=== PATIENT | female | born 1980 | race Caucasian/White ===

== ENCOUNTER 2016-05-22 15:45 | Emergency (ER) | payer MEDICAID ==
[2014-12-08 05:50] VITALS: BMI 20.5
[~2016-05-22 15:45] MED LIST: CLARITIN 10 MG10 MG PO; DILAUDID2 MG PO; IBUPROFEN600 MG PO; OXYBUTYNIN CHLOR5 MG PO; PHENERGAN25 M1 PO; SINGULAIR10 MG PO; TIKOSYN500 MCG PO; XANAX0.5 MG PO
== END 2016-05-22 19:50 | disposition home or self-care (01) ==
LOC: D.ER 15:45
DX: S43.402A Unspecified sprain of left shoulder joint, initial encounter (principal); Y04.2XXA Assault by strike against or bumped into by another person, initial encounter; Y93.89 Activity, other specified; Y92.019 Unspecified place in single-family (private) house as the place of occurrence of the external cause

== ENCOUNTER 2017-08-08 14:01 | Emergency (ER) | payer MEDICAID ==
[2014-12-08 05:50] VITALS: BMI 20.5
== END 2017-08-08 17:35 | disposition home or self-care (01) ==
LOC: D.ER 14:01
DX: S00.03XA Contusion of scalp, initial encounter (principal); Y04.2XXA Assault by strike against or bumped into by another person, initial encounter; Y93.89 Activity, other specified; Y92.019 Unspecified place in single-family (private) house as the place of occurrence of the external cause; S16.1XXA Strain of muscle, fascia and tendon at neck level, initial encounter; S01.01XA Laceration without foreign body of scalp, initial encounter

== ENCOUNTER → 2017-12-16 12:38 | Outpatient (CLI) | payer MEDICAID ==
[2014-12-08 05:50] VITALS: BMI 20.5
== END | disposition home or self-care (01) ==
LOC: D.NM 12:38
DX: R19.7 Diarrhea, unspecified (principal)

== ENCOUNTER 2018-02-28 13:41 | Emergency (ER) | payer MEDICAID ==
[~2018-02-28] VITALS: Ht 170.2 cm; Wt 74.1 kg
[2018-02-28 13:45] VITALS: Ht 170.2 cm; Wt 74.1 kg
[2018-02-28] MEDS ORDERED: KLONOPIN0.5 MG PO (13:46)
[2018-02-28 14:23] LABS: BASOPHILS 0.3 % (0-2); EOSINOPHILS 0.9 % (0-7); HEMATOCRIT 39.5 % (36.0-48.0); HEMOGLOBIN 13.5 g/dL (12-16); LYMPHOCYTES 35.9 % (15-50); MCH 31.3 pg (26.0-34.0); MCHC 34.2 g/dL (31.0-37.0); MCV 91.6 fL (80.0-100.0); MEAN PLATELET VOLUME 9.9 fL (7.4-10.4); MONOCYTES 6.7 % (2-11); NEUTROPHILS 56.2 % (40-80); PLATELET COUNT 178 10x3/uL (130-400); RBC 4.31 10x6/uL (4.00-5.40); RDW 12.4 % (11.5-14.5); WBC 6.7 10x3/uL (4.8-10.8)
[2018-02-28 14:38] LABS: ALBUMIN 3.5 g/dL (3.4-5.0); ALKALINE PHOSPHATASE 54 U/L (46-116); ALT (SGPT) 14 U/L (10-68); BILIRUBIN - TOTAL 0.36 mg/dL (0.2-1.3); CALC OSMOLALITY 277 mosm/kg (275-300); CALCIUM 8.7 mg/dL (8.5-10.1); CARBON DIOXIDE 28.3 mmol/L (21.0-32.0); CHLORIDE - SERUM 105 mmol/L (98-107); CREATININE - SERUM 0.9 mg/dL (0.6-1.3); GLUCOSE 90 mg/dL (74-106); POTASSIUM - SERUM 3.6 mmol/L (3.5-5.1); PROTEIN - SERUM 7.6 g/dL (6.4-8.2); SODIUM 140 mmol/L (136-145); UREA NITROGEN 9 mg/dL (7-18); eGFR NON AFRICAN AMERICAN 75 mL/min (90-120)
[2018-02-28 14:54] LABS: AMYLASE - SERUM 53 U/L (25-115); LIPASE 178 U/L (73-393); TROPONIN-I < 0.017 ng/mL (0.000-0.060)
[2018-02-28 15:34] LABS: APPEARANCE CLEAR (CLEAR); BILIRUBIN NEGATIVE (NEGATIVE); COLOR YELLOW (YELLOW); GLUCOSE NEGATIVE (NEGATIVE); KETONE NEGATIVE (NEGATIVE); NITRITE NEGATIVE (NEGATIVE); PROTEIN NEGATIVE (NEGATIVE); UROBILINOGEN NORMAL (NORMAL)
[2018-02-28] MEDS ORDERED: ZOFRAN ODT4 MG/UDTAB PO (17:17)
[2018-02-28 17:43] VITALS: BP 103/79
== END 2018-02-28 17:44 | disposition home or self-care (01) ==
LOC: D.ER 13:41
PROVIDERS: Family Medicine
DX: R10.30 Lower abdominal pain, unspecified (principal); K52.9 Noninfective gastroenteritis and colitis, unspecified; R11.2 Nausea with vomiting, unspecified

== ENCOUNTER → 2018-03-09 10:30 | Outpatient (CLI) | payer MEDICAID ==
[2018-02-28 13:45] VITALS: BMI 25.6
[~2018-03-09 10:30] MED LIST changes: +KLONOPIN0.5 MG PO; +ZOFRAN ODT4 MG/UDTAB PO
== END | disposition home or self-care (01) ==
LOC: D.MRI 10:30
DX: M25.562 Pain in left knee (principal)

== ENCOUNTER → 2018-04-30 15:27 | Outpatient (CLI) | payer MEDICAID ==
[2018-02-28 13:45] VITALS: BMI 25.6
== END | disposition home or self-care (01) ==
LOC: D.MRI 15:27
DX: M47.817 Spondylosis without myelopathy or radiculopathy, lumbosacral region (principal)

== ENCOUNTER 2019-01-19 06:45 | Day surgery (SDC) | payer MEDICAID ==
[2019-01-18 13:38] LABS: HEMATOCRIT 34.9 % (36.0-48.0); HEMOGLOBIN 11.6 g/dL (12-16); MCH 29.4 pg (26.0-34.0); MCHC 33.2 g/dL (31.0-37.0); MCV 88.4 fL (80.0-100.0); MEAN PLATELET VOLUME 9.6 fL (7.4-10.4); RBC 3.95 10x6/uL (4.00-5.40); RDW 12.9 % (11.5-14.5); WBC 7.3 10x3/uL (4.8-10.8)
[~2019-01-19] VITALS: Ht 170.2 cm; Wt 74.8 kg
[~2019-01-19 06:45] MED LIST changes: +CARBINOXAMIN PO
[2019-01-19 08:04] VITALS: BP 125/80; Ht 170.2 cm; Wt 74.8 kg
[2019-01-19] MEDS ORDERED: TORADOL10 MG PO (09:33)
[2019-01-19] MEDS ORDERED: ULTRAM50 MG PO (09:33)
--- NOTE | 2019-01-19 10:22 | NUR ---
1010 OFFICE NOTIFIED PT. DID NOT HAVE CRUTCHES OF YET. [facility] REACHED AND STATES DOES NOT HAVE ORDER, OFFICE NOTIFIED TO SEND ORDER, STATES WILL SEND ORDER.
--- NOTE | 2019-01-19 14:44 | OP ---
PATIENT NAME: TEODORO ASENCIO MEDICAL RECORD: [id number] :81 LOCATION:D.OPS ADMISSION DATE: SURGEON: LUIZ WORKMAN DO DATE OF OPERATION: 01/19/2019 PROCEDURE PERFORMED: Left knee arthroscopy with microfracture of the medial femoral condyle. 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 INDICATIONS: Ms. Angulo is a 38-year-old female who has had left knee pain for quite some time. She had an MRI showing chondromalacia and informed her we could go in and clean it up and after that we could talk about what to do next. She is only 38 and we would try to do what we could to get her back to not having knee pain. She was informed of the risks including infection, bleeding, need for further surgery, blood clots, and even . She was okay with that and signed the consent. SURGEON: Luiz Workman DO DESCRIPTION OF PROCEDURE: The patient was taken to the operative suite, laid in supine position, given general anesthetic. Left lower extremity was prepped and draped in sterile fashion. The time-out was performed, everyone was in agreeance with the correct side, site, patient and procedure. She had been sedated and LMA placed. The patient was given 2 grams Ancef preoperatively. The knee was then flexed down and the anterior, lateral and medial portal sites were injected with 2 mL of 0.25% Marcaine with epinephrine. The lateral portal was then established with an 11-blade scalpel. Trocar entered into the knee. The suprapatellar pouch inspected, no loose body was seen. There was no chondromalacia on the patella. There were no loose bodies in the lateral or medial gutters. Then, the knee was brought from extension to flexion. Once the medial compartment was entered, the medial portal was established with an 18-gauge spinal needle and 11-blade scalpel. There was a large piece of cartilage that was off the most lateral aspect of the medial femoral condyle. 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 The meniscus was then probed and no tear was seen in that. Then, we brought in the shaver to chew off the loose cartilage back to a stable point and then the power pick was brought in to do a microfracture. There was 4 or 5 holes put in around the site, it was grade IV chondromalacia. ACL was then probed and then it was seen to be taut. Lateral compartment was entered. There was a small chondromalacia on the lateral tibial plateau, grade II, with the lateral femoral condyle looked good and there were no tears seen on the lateral meniscus. The suction was then turned on. Water was turned off and the portal sites closed with 4-0 Monocryl in inverted interrupted fashion. Steri-Strips, Adaptic, 4 x 4's, ABD, Webril, Doug wrap and KINSEY hose stocking was placed up to the knee. She was awakened and taken to recovery in stable condition. BLOOD LOSS: Minimal. COMPLICATIONS: None. OPERATIVE REPORT [id number] TEODORO ASENCIO TRANSINT:[id number] Voice Confirmation ID: [id number] DOCUMENT ID: [id number] LUIZ WORKMAN DO at 1444 CC: [id number] DICTATION DATE: 01/19/19925 SPORTS AGENT: 01/19/19 1134 [facility] 01/19/19 [address] [place] [address]
== END 2019-01-19 13:55 | disposition home or self-care (01) ==
LOC: D.OPS 06:45 → D.PAN 11:45 → D.OPS 11:45
PROVIDERS: Anesthesiology; ATTEND Orthopaedic Surgery
DX: M94.262 Chondromalacia, left knee (principal); Z01.812 Encounter for preprocedural laboratory examination

== ENCOUNTER → 2019-10-20 14:40 | Outpatient (CLI) | payer MEDICAID ==
[2019-01-19 08:04] VITALS: BMI 25.9
[~2019-10-20 14:40] MED LIST changes: +TORADOL10 MG PO; +ULTRAM50 MG PO
== END | disposition home or self-care (01) ==
LOC: D.MRI 14:40
PROVIDERS: ATTEND Orthopaedic Surgery
DX: M25.562 Pain in left knee (principal)

== ENCOUNTER → 2020-01-21 13:03 | Outpatient (CLI) | payer MEDICAID ==
[2019-01-19 08:04] VITALS: BMI 25.9
== END | disposition home or self-care (01) ==
LOC: D.MRI 13:03
PROVIDERS: ATTEND Orthopaedic Surgery
DX: M51.26 Other intervertebral disc displacement, lumbar region (principal)

== ENCOUNTER 2020-01-28 22:06 | Emergency (ER) | payer MEDICAID ==
[~2020-01-28] VITALS: Ht 170.2 cm; Wt 77.3 kg
[2020-01-28 22:13] VITALS: Ht 170.2 cm; Wt 77.3 kg
[2020-01-28 23:00] LABS: BASOPHILS 0.4 % (0-2); EOSINOPHILS 0.4 % (0-7); HEMATOCRIT 35.2 % (36.0-48.0); HEMOGLOBIN 11.3 g/dL (12-16); LYMPHOCYTES 40.9 % (15-50); MCH 28.3 pg (26.0-34.0); MCHC 32.1 g/dL (31.0-37.0); MCV 88.2 fL (80.0-100.0); MEAN PLATELET VOLUME 9.1 fL (7.4-10.4); MONOCYTES 11.2 % (2-11); NEUTROPHILS 47.1 % (40-80); PLATELET COUNT 277 10x3/uL (130-400); RBC 3.99 10x6/uL (4.00-5.40); RDW 14.8 % (11.5-14.5); WBC 4.6 10x3/uL (4.8-10.8)
[2020-01-28 23:07] LABS: BILIRUBIN NEGATIVE (NEGATIVE); KETONE NEGATIVE (NEGATIVE); NITRITE NEGATIVE (NEGATIVE); UROBILINOGEN NORMAL mg/dL (< 2)
[2020-01-28 23:09] LABS: CALC OSMOLALITY 269 mosm/kg (275-300); CALCIUM 9.2 mg/dL (8.5-10.1); CARBON DIOXIDE 26.6 mmol/L (21.0-32.0); CHLORIDE - SERUM 104 mmol/L (98-107); CREATININE - SERUM 1.1 mg/dL (0.6-1.3); GLUCOSE 94 mg/dL (74-106); POTASSIUM - SERUM 4.1 mmol/L (3.5-5.1); SODIUM 135 mmol/L (136-145); UREA NITROGEN 13 mg/dL (7-18); eGFR NON AFRICAN AMERICAN 59 mL/min (90-120)
[2020-01-28 23:18] LABS: ALBUMIN 3.6 g/dL (3.4-5.0); ALKALINE PHOSPHATASE 73 U/L (30-120); ALT (SGPT) 15 U/L (10-68); PROTEIN - SERUM 7.9 g/dL (6.4-8.2)
[2020-01-28 23:20] LABS: BILIRUBIN - TOTAL 0.09 mg/dL (0.2-1.3); TROPONIN-I < 0.017 ng/mL (0.000-0.060)
[2020-01-29 02:46] VITALS: BP 125/77
== END 2020-01-29 02:46 | disposition home or self-care (01) ==
LOC: D.ER 22:06
PROVIDERS: Emergency Medicine
DX: G43.909 Migraine, unspecified, not intractable, without status migrainosus (principal); M62.48 Contracture of muscle, other site

== ENCOUNTER → 2020-10-06 09:57 | Outpatient (CLI) | payer BC ==
[2020-01-28 22:13] VITALS: BMI 26.7
== END | disposition home or self-care (01) ==
LOC: D.MRI 09:57
PROVIDERS: ATTEND Clinical Nurse Specialist Family Health
DX: M54.12 Radiculopathy, cervical region (principal)